=== PATIENT | female | born 1980 ===

== ENCOUNTER 2017-10-07 16:56 | Emergency (ER) | payer BC ==
[2017-10-07 17:06] VITALS: BP 111/76; O2SAT 100
[2017-10-07 17:10] VITALS: PULSE 98; TEMP 98
[2017-10-07 17:58] VITALS: RESP 20
[2017-10-07] MEDS ORDERED: Albuterol-Ipratrop 3 mg / 0.5 (3 ml) UD INH STA (18:02)
--- NOTE | 2017-10-07 18:16 | RAD ---
HISTORY: SOB COMPARISON: No prior. TECHNIQUE: Chest PA and lateral FINDINGS: LUNGS: No active pulmonary disease. PLEURA: No significant pleural effusion identified. No pneumothorax apparent. CARDIOVASCULAR: Normal. OSSEOUS STRUCTURES: No significant abnormalities. VISUALIZED UPPER ABDOMEN: Normal. OTHER FINDINGS: None. IMPRESSION: No active disease.
--- NOTE | 2017-10-07 18:24 | ED PDOC ---
HPI: SOB/CHF/COPD Time Seen by Provider: 10/07/17 17:17 Chief Complaint (Nursing): Shortness Of Breath Chief Complaint (Provider): Shortness Of Breath History Per: Patient History/Exam Limitations: no limitations Onset/Duration Of Symptoms: Intermittent Episodes (over past 2 weeks) Current Symptoms Are (Timing): Still Present Additional Complaint(s): 36 y/o female with past medical history of asthma presents to the ED for shortness of breath occurring intermittently over past 2 weeks. Patient was found tachycardic and hypotensive in the PMDs office and thus was referred to ED. She notes intermittent dry cough but denies fever. She took Zyrtec over the counter without improvement. Denies leg pain, leg swelling or any further medical complaints. PMD: Past Medical History Reviewed: Historical Data, Nursing Documentation, Vital Signs Vital Signs: Last Vital Signs Temp 98 F 10/07/17 17:08 Pulse 98 H 10/07/17 17:08 Resp 20 10/07/17 17:57 BP 111/76 10/07/17 17:08 Pulse Ox 100 10/07/17 18:37 - Medical History PMH: Asthma - Surgical History Surgical History: No Surg Hx - Family History Family History: States: Unknown Family Hx - Social History Current smoker - smoking cessation education provided: No Alcohol: None Drugs: Denies - Immunization History Hx Tetanus Toxoid Vaccination: No Hx Influenza Vaccination: No Hx Pneumococcal Vaccination: No - Home Medications Home Medications: Ambulatory Orders Medication Instructions Recorded Desloratadine [Clarinex] 5 mg PO DAILY #10 tablet 10/07/17 - Allergies Allergies/Adverse Reactions: Allergies Allergy/AdvReac Type Severity Reaction Status Date / Time aspirin Allergy SHORTNESS Verified 10/07/17 17:08 OF BREATH Review of Systems ROS Statement: Except As Marked, All Systems Reviewed And Found Negative (As per HPI, otherwise negative) Constitutional: Negative for: Fever Cardiovascular: Positive for: Chest Pain (Chest tightness) Respiratory: Positive for: Cough (intermittent dry cough), Shortness of Breath Musculoskeletal: Negative for: Leg Pain (and leg swelling) Physical Exam - Reviewed Nursing Documentation Reviewed: Yes Vital Signs Reviewed: Yes - Physical Exam Appears: Positive for: Well, Non-toxic, No Acute Distress Head Exam: Positive for: ATRAUMATIC, NORMOCEPHALIC Skin: Positive for: Normal Color, Warm, Dry Eye Exam: Positive for: Normal appearance, EOMI, PERRL Neck: Positive for: Normal, Painless ROM, Supple Cardiovascular/Chest: Positive for: Regular Rate, Rhythm. Negative for: Murmur Respiratory: Positive for: Normal Breath Sounds. Negative for: Accessory Muscle Use, Respiratory Distress Gastrointestinal/Abdominal: Positive for: Normal Exam, Bowel Sounds, Soft. Negative for: Tenderness Back: Positive for: Normal Inspection. Negative for: L CVA Tenderness, R CVA Tenderness, Other (midline tenderness) Extremity: Positive for: Normal ROM. Negative for: Pedal Edema, Deformity Neurologic/Psych: Positive for: Alert, Oriented (x3). Negative for: Motor/ Sensory Deficits - Laboratory Results Result Diagrams: 10/07/17 18:14 10/07/17 18:14 - ECG O2 Sat by Pulse Oximetry: 100 (RA) Pulse Ox Interpretation: Normal - Radiology X-Ray: Interpreted by Me, Viewed By Me Medical Decision Making Medical Decision Making: Time: 17:24 Initial Impression: shortness of breath Plan: EKG CMP Troponin I Urine dipstick Urine CBC w/ diff D Dimer Partial thromboplastin time Prothrombin time Chest x-ray Albuterol 3ml INH Peak flow pre/post Tx Reevaluation Time: 18:02 FINDINGS: LUNGS: No active pulmonary disease. PLEURA: No significant pleural effusion identified. No pneumothorax apparent. CARDIOVASCULAR: Normal. OSSEOUS STRUCTURES: No significant abnormalities. VISUALIZED UPPER ABDOMEN: Normal. OTHER FINDINGS: None. IMPRESSION: No active disease. Time:18:14 EKG: Sinus Rhythm: 95, QTC: 469, no ST/T changes D/w Dr Ross, stable for dc with followup thursday for echo. On re-eval pt offered CTA chest, recommended but she denied and said she felt better PMD requests trial clarinex, return ER for any SOB or Chest pain. SPO2 maintaining >97% Scribe Attestation: Documented by Bravo Chavez acting as a scribe for Ulysses Jackson MD. Scribe Attestation: All medical record entries made by the Scribe were at my direction and personally dictated by me. I have reviewed the chart and agree that the record accurately reflects my personal performance of the history, physical exam, medical decision making, and the department course for this patient. I have also personally directed, reviewed, and agree with the discharge instructions and disposition. Disposition - Clinical Impression Clinical Impression: Dyspnea - Patient ED Disposition Is Patient to be Admitted: No Counseled Patient/Family Regarding: Studies Performed, Diagnosis, Need For Followup, Rx Given - Disposition Referrals: Joel Ross MD [Family Provider] - Disposition: Routine/Home Disposition Time: 18:30 Condition: STABLE Additional Instructions: Return to ER for any worse or new symptoms. See Dr Ross thursday for further testing and echocardiogram scheduling. Start clarinex 5mg daily. Prescriptions: Desloratadine [Clarinex] 5 mg PO DAILY #10 tablet Instructions: Dyspnea (ED) Forms: [facility] (French)
[2017-10-07 18:26] LABS: BASO % 0.7 % (0.0-2.0); EOS # 0.1 K/uL (0.0-0.7); EOS % 1.7 % (0.0-4.0); HEMATOCRIT 38.8 % (34.0-47.0); LYMPH # 2.2 K/uL (1.0-4.3); LYMPH % 31.8 % (20.0-40.0); MEAN CELL VOLUME 79.6 fl (81.0-99.0); MEAN CORPUSCULAR HEMOGLOBIN 26.1 pg (27.0-31.0); MEAN CORPUSCULAR HGB CONC 32.8 g/dL (33.0-37.0); MEAN PLATELET VOLUME 8.5 fl (7.2-11.7); MONO # 0.5 K/uL (0.0-0.8); MONO % 7.3 % (0.0-10.0); NEUT # 4.1 K/uL (1.8-7.0); NEUT % 58.5 % (50.0-75.0); RED CELL DISTRIBUTION WIDTH 13.2 % (11.5-14.5)
[2017-10-07] MEDS ORDERED: Albuterol-Ipratrop 3 mg / 0.5 (3 ml) UD ONE (18:33)
[2017-10-07 18:34] LABS: ALB/GLOB RATIO 1.2 (1.0-2.1); ALKALINE PHOSPHATASE 75 U/L (38-126); ALT/SGPT 46 U/L (9-52); AST/SGOT 25 U/L (14-36); BILIRUBIN,TOTAL 0.3 mg/dl (0.2-1.3); BLOOD UREA NITROGEN 14 mg/dl (7-17); CALCIUM 8.9 mg/dL (8.4-10.2); CARBON DIOXIDE 28 mmol/L (22-30); CHLORIDE 103 mmol/L (98-107); GFR AFRICAN-AMERICAN > 60; GLUCOSE,RANDOM 89 mg/dL (65-105); POTASSIUM 3.9 MMOL/L (3.6-5.0); SODIUM 142 mmol/l (132-148); TOTAL PROTEIN 7.8 G/DL (6.3-8.2)
[2017-10-07 18:42] LABS: PARTIAL THROMBOPLASTIN TIME 29.7 Seconds (25.6-37.1)
--- NOTE | 2017-10-08 11:00 | CARD ---
APPROVED REPORT EKG Measurement Heart [id number] <Conclusion> Normal sinus rhythm Normal ECG
== END 2017-10-07 20:10 | disposition home or self-care (01) ==
LOC: H.ER 16:56
DX: J45.909 Unspecified asthma, uncomplicated (principal)